=== PATIENT | female | born 1980 | race Caucasian/White ===

== ENCOUNTER 2022-07-28 15:34 | Emergency (ER) | payer MEDICAID, SELFPAY ==
[2022-07-28 15:50] VITALS: BP 125/50; PULSE 80; RESP 16; TEMP 36.6; O2SAT 97; BMI 34.7
--- NOTE | 2022-07-28 15:51 | ED.GENADULT ---
HPI - General Adult General Chief complaint: Wound/Laceration Stated complaint: skin issue from biopsy Time Seen by Provider: 07/28/22 17:28 Source: patient Mode of arrival: ambulatory Limitations: no limitations History of Present Illness HPI narrative: Patient eloped before further history physical exam can be done. Related Data Allergies Allergy/AdvReac Type Severity Reaction Status Date / Time No Known Allergies Allergy Verified 07/28/22 15:49 PMFSH Social History Social History Advance Directives: No Advance Directives Information Provided: No Physical Exam ED Vital Signs: Vital Signs - 24 hr 07/28/22 15:50 Temperature 97.8 F Pulse Rate 80 Respiratory Rate 16 Blood Pressure 125/50 L Pulse Oximetry 97 Oxygen Delivery Method Room Air BMI result Body Mass Index 34.7 Course Course Course Narrative: RME: 42 yold female presents to the ED for left breast biopsy skin issue. patient wants biopsy skin to be evaluated. Medical Decision Making Medical Decision Making MDM Narrative: Patient eloped before further physical exam can be done. Discharge Plan Discharge Clinical Impression: Encounter for wound re-check Patient Disposition: Elopement
--- NOTE | 2022-07-28 16:42 | PC.NURSE ---
PT LEFT BREAST BREAST S/P PUNCH BIOPSY, BIOPSY SITE, NONERYTHEMATOUS, APPROX 1CM BELOW SITE IS A DIME SIZE AREA OF ERYTHEMA WITH SLOUGH AT MIDDLE. PT DENIES FEVERS CHILLS SOB CP AT THIS TIME
== END 2022-07-28 17:37 | disposition left against medical advice (07) ==
PROVIDERS: Emergency Provider Internal Medicine
DX: Z48.00 Encounter for change or removal of nonsurgical wound dressing (principal)
CPT/HCPCS: 99282